=== PATIENT | male | born 1955 | race Hispanic/Latino ===

== ENCOUNTER 2018-12-16 16:26 | Emergency (ER) | payer MEDICARE ==
--- NOTE | 2018-12-16 18:07 | Emergency Department Report ---
- General Chief Complaint: Urogenital-Male Stated Complaint: SWELLING BLEEDING/GENITAL AREA Time Seen by Provider: 12/16/18 17:45 Source: patient, EMS Mode of arrival: Stretcher Limitations: No Limitations - History of Present Illness Initial Comments: Mr. Lacey is a 63 yo male wihthx of atrial fibrillation, CVA, sepsis, sacral region, osteomyelitis who presents with bleeding from surgical wound in the penis area. Mr. Lacey had extensive surgical debridement at [facility]. He is taking Plavix and Xarelto. Minimal trauma with [facility] DNR status -: Sudden, This afternoon Location: genitals Place: other (SNF) Context: accidental - Related Data Allergies Allergy/AdvReac Type Severity Reaction Status Date / Time ciprofloxacin [From Cipro] Allergy Diarrhea Verified 12/16/18 17:16 tomato AdvReac Swelling Verified 12/16/18 17:16 ED Review of Systems ROS: Stated complaint: SWELLING BLEEDING/GENITAL AREA Other details as noted in HPI Comment: All other systems reviewed and negative Constitutional: denies: fever, malaise Respiratory: cough (intermittent non-productive cough) Cardiovascular: denies: chest pain ED Past Medical Hx - Past Medical History Previous Medical History?: Yes Hx CVA: Yes Hx Diabetes: Yes Additional medical history: reviewed per SNF documentation - Surgical History Additional Surgical History: colostomy, testicular/penial/anal repair - Social History Smoking Status: Former Smoker Substance Use Type: None ED Physical Exam - General Limitations: No Limitations General appearance: alert, in no apparent distress - Head Head exam: Present: atraumatic, normocephalic - Eye Eye exam: Present: normal appearance - ENT ENT exam: Present: mucous membranes moist - Neck Neck exam: Present: normal inspection, full ROM - Respiratory Respiratory exam: Present: normal lung sounds bilaterally. Absent: respiratory distress, wheezes, rales, rhonchi - Cardiovascular Cardiovascular Exam: Present: regular rate, normal rhythm, normal heart sounds. Absent: systolic murmur, diastolic murmur, rubs, gallop - GI/Abdominal GI/Abdominal exam: Present: soft, normal bowel sounds. Absent: distended, tenderness, guarding, rebound - exam: Present: other (Bleeding from hematoma at the bottom proximal shaft, diaper full of blood) - Extremities Exam Extremities exam: Present: other (bandages on big toes bilaterally) - Back Exam Back exam: Present: normal inspection - Neurological Exam Neurological exam: Present: alert, oriented X3 - Psychiatric Psychiatric exam: Present: normal affect, normal mood - Skin Skin exam: Present: warm, dry, intact, normal color. Absent: rash ED Medical Decision Making - Medical Decision Making Bleeding from surgical wound, I provided wound care instructions to nurse. Recommended holding Plavix and Xarelto for 2 days. Returned to SNF. Critical care attestation.: If time is entered above; I have spent that time in minutes in the direct care of this critically ill patient, excluding procedure time. ED Disposition Clinical Impression: Postoperative bleeding from incision Disposition: [id number]/TX-[id number] ANOTHER TYPE [facility]TH[facility]ARE Is pt being admited?: No Does the pt Need Aspirin: No Condition: Stable Additional Instructions: Please hold Xarelto and Plavix for 2 days.
[2018-12-16] MEDS ORDERED: TRIPLE ANTIBIOTIC TP ONE (19:06)
[2018-12-16 20:02] VITALS: BP 129/82
== END 2018-12-16 20:28 | disposition other institution (70) ==
LOC: ED 16:26 → EEVIPCON 16:26 → ED 20:28
DX: L76.22 Postprocedural hemorrhage of skin and subcutaneous tissue following other procedure (principal); E11.9 Type 2 diabetes mellitus without complications; Z86.73 Personal history of transient ischemic attack (TIA), and cerebral infarction without residual deficits; Z93.3 Colostomy status; Z98.890 Other specified postprocedural states; Z87.891 Personal history of nicotine dependence; Z88.1 Allergy status to other antibiotic agents; Z91.018 Allergy to other foods
CPT/HCPCS: 99283; A6250